=== PATIENT | male | born 1950 | race Caucasian/White ===

== ENCOUNTER → 2018-02-01 | Outpatient (CLI) | payer BC ==
[~2018-02-01] MED LIST: ALB6.7R INH; AMLO-96 PO; AMLO-99 PO; ASPI-1471 PO; ASPI-757 PO; ATOR40TA24 PO; BP MED PO; CEP500 PO; CYCL10TA29 PO; DOXY-179 PO; ENAL20TA99 PO; FLUT1DIS28 IH; HYDR-4309 PO; IBUP600T22 PO; IBUP800T37 PO; LISI20TA29 PO; LOR5/325 PO; MELO-150 PO; NITR0.4T3 SL; NO ROUTINE MEDS; OXYC-865 PO; POTA10CA40 PO; PRE20 PO; TRA50 PO
--- NOTE | 2018-02-01 14:27 | RADIOLOGY IMAGING REPORT ---
FACILITY: [facility] PATIENT NAME: Weston Green : 1950 MR: [id number] V: [id number] EXAM DATE: ORDERING PHYSICIAN: INDRA MENESES TECHNOLOGIST: Location: [facility] Patient: Weston Green : 1950 Visit/Account:[id number] Date of Sevice: 02/01/2018 Exam type: LUMBAR SPINE 2 OR 3 VIEW History: Low back pain, no known injury Comparison: None. Findings: There are five nonrib-bearing lumbar-type vertebral bodies present. There is no evidence of acute fr actures or subluxations within the lumbar spine. Small anterior osteophytes are seen throughout the lumbar spine. There is suggestion of mild disc space narrowing L1-2 and T12-L1 and L5-S1. Mild vasc ular calcination occasions are present in the abdominal aorta. IMPRESSION: 1. Mild spondylotic changes lumbar spine as described. If patient's symptoms persist MR is recommen ded Report Dictated By: Hanh Lechuga MD at 02/01/2018 2:21 PM Report E-Signed By: Hanh Lechuga MD at 02/01/2018 2:24 PM WSN:[email or web address]
== END ==
LOC: RAD 11:05
PROVIDERS: ATTEND Family Medicine
DX: M47.896 Other spondylosis, lumbar region (principal)
CPT/HCPCS: 72100

== ENCOUNTER 2018-02-28 11:27 | Outpatient (RCR) | payer BC ==
[2018-02-28 12:05] LABS: PLATELET COUNT, AUTOMATED 204 K/uL (150-450)
[2018-03-02] MEDS ORDERED: IOPAMIDOL 76% 100 ML INFUS BTL 100 ML ONE (08:00)
[2018-03-02] MEDS ORDERED: NS 0.9% 150 ML BAG 150 ML ONE (08:00)
[2018-03-02] MEDS ORDERED: IOPAMIDOL 76% 150 ML INFUS BTL 0 ML ONE (08:00)
--- NOTE | 2018-03-02 09:16 | RADIOLOGY IMAGING REPORT ---
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 Report Dictated By: Turner Ponce MD at 03/02/2018 9:33 AM Report E-Signed By: Turner Ponce MD at 03/02/2018 9:34 AM ORIGINAL REPORT EXAMINATION: CT Abdomen W/O Contrast CT Abdomen W/ Contrast CT Pelvis W/O Contrast CT Pelvis W/ Contrast 03/02/2018 8:00 AM HISTORY: Hematuria TECHNIQUE: CT Urogram Protocol:. A non-intravenous contrast enhanced spiral scan was obtained of the kidneys, ureters and bladder. Ad ditional enhanced CT urographic images were acquired. Contrast: 100 mL of IV Isovue 370. One of the following dose optimization techniques was utilized in the performance of this exam: Autom ated exposure control; adjustment of the mA and/or kV according to the patient's size; or use of an i terative reconstruction technique. Specific details can be referenced in the facility's radiology C T exam operational policy. COMPARISON STUDIES: 05/07/2009. FINDINGS: Right kidney and ureter: Numerous tiny hypoenhancing foci presumptively are cysts. No complicated cy st or solid cortical mass. 3 to 4 mm stone anteriorly in the mid to lower aspect. No urothelial mas s. Ureter is not dilated. Left kidney and ureter: Nonobstructive intrarenal stones measuring up to 4 mm. Multiple small cortic al cysts. No complicated cyst or solid mass. No urothelial mass. Ureter is not dilated. Bladder: 3 mm calcification along the right posterior bladder at or just above the UVJ within the oumou dder lumen. Liver / biliary: negative Pancreas: negative Spleen: negative Adrenal glands: negative Retroperitoneum: negative Pelvic structures: Prostate is borderline prominent, 4.5 x 4.5 cm. Bowel / peritoneum / mesenteries: No acute finding. Diverticulosis of the sigmoid. Vessels: Atherosclerosis includes coronary disease. Musculoskeletal / Body wall: Old lateral left ninth and 10th rib fractures. Degenerative changes in the spine. Small bone islands. Lymph node assessment: negative Lower chest: Basilar scarring or fibrosis greater on the right than the left. Emphysematous lucencie s. IMPRESSION: 1. Bilateral nephrolithiasis. 3 mm stone is either at the right UVJ or passed into the bladder, per haps within the bladder given the lack of ureteral dilatation above it. 2. Benign-appearing renal cortical cysts. Report Dictated By: Turner Ponce MD at 03/02/2018 8:57 AM Report E-Signed By: Turner Ponce MD at 03/02/2018 9:12 AM WSN:[email or web address]
== END 2018-03-02 18:00 | disposition home or self-care (01) ==
LOC: CT 11:27
PROVIDERS: ATTEND Urology
DX: N20.0 Calculus of kidney (principal); N28.1 Cyst of kidney, acquired; R31.0 Gross hematuria; M54.5 Low back pain
CPT/HCPCS: 36415; 74178; 81001; 82248; 85025; 87088; Q9967; 82040; 82247; 82310; 82374; 82435; 82565; 82947; 84075; 84132; 84155; 84295; 84450; 84460; 84520

== ENCOUNTER 2018-06-05 14:31 | Emergency (ER) | payer BC ==
--- NOTE | 2018-06-05 14:51 | ER Report ---
History and Physical Time Seen By MD: 14:46 Hx. of Stated Complaint: VOMITTING FOR 6 DAYS. NOTHING TO EAT FOR 4 DAYS HPI/ROS CHIEF COMPLAINT: Nausea and vomiting HISTORY OF PRESENT ILLNESS: This is a 67-year-old male who presents to the emergency department for nausea and vomiting. Patient states that over the last 6 days he's had no acute onset of nausea and vomiting, unable to keep anything down not able to eat over the last 4 days. Patient states he is scheduled to have left hip replacement in about 5 weeks. Patient states he is being very careful with his medications avoiding medications such as NSAIDs to prevent a delay in the surgery. Patient states his primary care provider gave him some tramadol for the hip pain. Patient states he is also very opposed to narcotic pain medications. Patient denies fevers, chest pain, shortness of breath. He is agreeable to a small dose of morphine and the emergency department for his left hip pain. REVIEW OF SYSTEMS: Respiratory: No cough, no dyspnea. Cardiovascular: No chest pain, no palpitations. Gastrointestinal: As above. Musculoskeletal: As above. Allergies: Coded Allergies: No Known Drug Allergies (Verified , 09/01/17) Home Meds Active Scripts Ondansetron (ZOFRAN ODT) 4 Mg Tab.rapdis, 4 MG PO Q6H Y for NAUSEA/VOMITING, # 20 TAB.L[place] 0 Refills Prov:CHRISTY TOBIAS [facility]- 06/05/18 Hydrocodone Bit/Acetaminophen (HYDROCODON-ACETAMINOPHEN 5-325) 1 Each Tablet, 1 EACH PO Q4-6H Y for PAIN, #8 TAB 0 Refills Take 1/2 a tab every 6 hours as needed for pain. Prov:CHRISTY [facility]BIAS [facility]- 06/05/18 Reported Medications Atorvastatin Calcium (LIPITOR) 40 Mg Tablet, 1 TAB PO QHS, TAB 06/12/17 Aspirin (ASPIR 81) 81 Mg Tablet.dr, 81 MG PO QDAY, TAB 06/12/17 Amlodipine Besylate (AMLODIPINE BESYLATE) 10 Mg Tablet, 1 TAB PO QDAY, TAB 06/12/17 Enalapril Maleate (ENALAPRIL MALEATE) 20 Mg Tablet, 20 MG PO QDAY 04/17/17 Discontinued Reported Medications Nitroglycerin (NITROGLYCERIN) 0.4 Mg Tab.subl, 0.4 MG SL Q5MIN Y for PAIN 06/12/17 Albuterol Sulfate (PROVENTIL HFA) 6.7 Gm Inh, 2 PUFF INH Q6H, INH 06/12/17 Past Medical/Surgical History The patient has a past medical surgical history of arthritis, hypertension, heart attack, COPD, chronic stomachache, celiac disease, lumbar back pain, back pain. Reviewed Nurses Notes: Yes Hx Smoking: Yes (1/2 PPD) Smoking Status: Current: Every Day Smoker Constitutional Vital Sign - Last 24 Hours 06/05/18 14:38 Temp 98.1 Pulse 78 Resp 16 B/P (MAP) 134/101 Pulse Ox 94 O2 Delivery Room Air Physical Exam General Appearance: The patient is alert, has no immediate need for airway protection and no current signs of toxicity, cachectic appearing. Eyes: Pupils equal and round no injection. Respiratory: Chest is non tender, lungs are clear to auscultation. Cardiac: regular rate and rhythm, no murmurs, clicks or rubs. Gastrointestinal: Abdomen is soft mild discomfort to the epigastrium with palpation. No masses, bowel sounds normal. Musculoskeletal: Neck: Neck is supple and non tender. Extremities have full range of motion and are non tender. Skin: No rashes or lesions. DIFFERENTIAL DIAGNOSIS: After history and physical exam differential diagnosis was considered for nausea and vomiting including but not limited to gastroenteritis, gastritis, appendicitis, and medication side effect. Medical Decision Making Data Points Result Diagram: 06/05/18 1449 06/05/18 1449 Laboratory Hematology Test 06/05/18 14:49 06/05/18 16:26 Red Blood Count 4.21 M/uL (4.00-5.60) Mean Corpuscular Volume 101.4 fL (80.0-96.0) Mean Corpuscular Hemoglobin 36.0 pg (26.0-33.0) Mean Corpuscular Hemoglobin Concent 35.5 g/dL (32.0-36.0) Red Cell Distribution Width 13.2 % (11.5-14.5) Mean Platelet Volume 7.2 fL (7.2-11.1) Neutrophils (%) (Auto) 78.9 % (39.4-72.5) Lymphocytes (%) (Auto) 11.9 % (17.6-49.6) Monocytes (%) (Auto) 7.7 % (4.1-12.4) Eosinophils (%) (Auto) 0.1 % (0.4-6.7) Basophils (%) (Auto) 1.4 % (0.3-1.4) Nucleated RBC Relative Count (auto) 0.0 /100WBC Neutrophils # (Auto) 7.6 K/uL (2.0-7.4) Lymphocytes # (Auto) 1.1 K/uL (1.3-3.6) Monocytes # (Auto) 0.7 K/uL (0.3-1.0) Eosinophils # (Auto) 0.0 K/uL (0.0-0.5) Basophils # (Auto) 0.1 K/uL (0.0-0.1) Nucleated RBC Absolute Count (auto) 0.00 K/uL Peripheral Blood Smear No Y/N Sodium Level 140 mmol/L (137-145) Potassium Level 4.0 mmol/L (3.5-5.0) Chloride Level 105 mmol/L (98-107) Carbon Dioxide Level 20 mmol/L (22-30) Blood Urea Nitrogen 25 mg/dl (9-21) Creatinine 1.30 mg/dl (0.66-1.25) Glomerular Filtration Rate Calc 54.9 Random Glucose 96 mg/dl (75-110) Calcium Level 9.0 mg/dl (8.4-10.2) Total Bilirubin 0.8 mg/dl (0.2-1.3) Aspartate Amino Transf (AST/SGOT) 23 U/L (0-35) Alanine Aminotransferase (ALT/SGPT) 15 U/L (0-56) Alkaline Phosphatase 64 U/L (0-126) Total Protein 6.4 g/dl (6.3-8.2) Albumin 4.0 g/dl (3.5-5.0) Amylase Level 65 U/L (0-110) Urine Color Yellow Urine Clarity Clear Urine pH 5.0 pH (4.8-9.5) Urine Specific [place] 1.023 Urine Protein 30 mg/dL (NEGATIVE) Urine Glucose (UA) Negative mg/dL (NEGATIVE) Urine Ketones 80 mg/dL (NEGATIVE) Urine Blood Negative (NEGATIVE) Urine Nitrite Negative (NEGATIVE) Urine Bilirubin Negative (NEGATIVE) Urine Urobilinogen 2.0 mg/dL (0.2-1.9) Urine Leukocyte Esterase Negative (NEGATIVE) Urine RBC 1 /HPF (0-2/HPF) Urine WBC 1 /HPF (0-5/HPF) Urine Squamous Epithelial Cells None /LPF (</=FEW) Urine Bacteria Negative /HPF (NONE-FEW) Urine Mucus Few /HPF (NONE-FEW) Chemistry Test 06/05/18 14:49 06/05/18 16:26 White Blood Count 9.6 k/uL (4.5-11.0) Red Blood Count 4.21 M/uL (4.00-5.60) Hemoglobin 15.1 g/dL (14.0-18.0) Hematocrit 42.7 % (42.0-52.0) Mean Corpuscular Volume 101.4 fL (80.0-96.0) Mean Corpuscular Hemoglobin 36.0 pg (26.0-33.0) Mean Corpuscular Hemoglobin Concent 35.5 g/dL (32.0-36.0) Red Cell Distribution Width 13.2 % (11.5-14.5) Platelet Count 234 K/uL (150-450) Mean Platelet Volume 7.2 fL (7.2-11.1) Neutrophils (%) (Auto) 78.9 % (39.4-72.5) Lymphocytes (%) (Auto) 11.9 % (17.6-49.6) Monocytes (%) (Auto) 7.7 % (4.1-12.4) Eosinophils (%) (Auto) 0.1 % (0.4-6.7) Basophils (%) (Auto) 1.4 % (0.3-1.4) Nucleated RBC Relative Count (auto) 0.0 /100WBC Neutrophils # (Auto) 7.6 K/uL (2.0-7.4) Lymphocytes # (Auto) 1.1 K/uL (1.3-3.6) Monocytes # (Auto) 0.7 K/uL (0.3-1.0) Eosinophils # (Auto) 0.0 K/uL (0.0-0.5) Basophils # (Auto) 0.1 K/uL (0.0-0.1) Nucleated RBC Absolute Count (auto) 0.00 K/uL Peripheral Blood Smear No Y/N Glomerular Filtration Rate Calc 54.9 Calcium Level 9.0 mg/dl (8.4-10.2) Total Bilirubin 0.8 mg/dl (0.2-1.3) Aspartate Amino Transf (AST/SGOT) 23 U/L (0-35) Alanine Aminotransferase (ALT/SGPT) 15 U/L (0-56) Alkaline Phosphatase 64 U/L (0-126) Total Protein 6.4 g/dl (6.3-8.2) Albumin 4.0 g/dl (3.5-5.0) Amylase Level 65 U/L (0-110) Urine Color Yellow Urine Clarity Clear Urine pH 5.0 pH (4.8-9.5) Urine Specific [place] 1.023 Urine Protein 30 mg/dL (NEGATIVE) Urine Glucose (UA) Negative mg/dL (NEGATIVE) Urine Ketones 80 mg/dL (NEGATIVE) Urine Blood Negative (NEGATIVE) Urine Nitrite Negative (NEGATIVE) Urine Bilirubin Negative (NEGATIVE) Urine Urobilinogen 2.0 mg/dL (0.2-1.9) Urine Leukocyte Esterase Negative (NEGATIVE) Urine RBC 1 /HPF (0-2/HPF) Urine WBC 1 /HPF (0-5/HPF) Urine Squamous Epithelial Cells None /LPF (</=FEW) Urine Bacteria Negative /HPF (NONE-FEW) Urine Mucus Few /HPF (NONE-FEW) Urinalysis Test 06/05/18 16:26 Urine Color Yellow Urine Clarity Clear Urine pH 5.0 pH (4.8-9.5) Urine Specific [place] 1.023 Urine Protein 30 mg/dL (NEGATIVE) Urine Glucose (UA) Negative mg/dL (NEGATIVE) Urine Ketones 80 mg/dL (NEGATIVE) Urine Blood Negative (NEGATIVE) Urine Nitrite Negative (NEGATIVE) Urine Bilirubin Negative (NEGATIVE) Urine Urobilinogen 2.0 mg/dL (0.2-1.9) Urine Leukocyte Esterase Negative (NEGATIVE) Urine RBC 1 /HPF (0-2/HPF) Urine WBC 1 /HPF (0-5/HPF) Urine Squamous Epithelial Cells None /LPF (</=FEW) Urine Bacteria Negative /HPF (NONE-FEW) Urine Mucus Few /HPF (NONE-FEW) ED Course/Re-evaluation Clinical Indication for ER IV: Hydration, IV Access ED Course The patient was admitted to room. A history and physical were obtained. Differential diagnoses were considered. IV was started. CBC, CMP and UA were obtained. MCV 101.4, MCH 36.0, I did compare these to the previous studies and this is within his normal limits. Chemistry showing BUN 25, creatinine 1.30 this is similar to previous studies. UA showing ketones and concentrated urine otherwise unremarkable. Patient was given a 1 L normal saline bolus. 4 mg IV Zofran, 4 mg IV morphine for his hip pain. Patient states he is feeling better however still having a little nausea, did repeat a 4 mg IV Zofran, he also received 20 mg IV and famotidine. Patient states he is feeling much better and would like to go home. I did send a prescription in for her Zofran and hydrocodone. I did tell the patient that he can go ahead and take the hydrocodone as needed for his discomfort till he follows up with his surgeon. The patient expressed understanding and is willing to do this as long as it doesn't delay his surgery. There were no other questions or concerns at this time and the patient was discharged home. Patient was feeling significantly better at the time of discharge. Decision to Disposition Date: Jun 05, 2018 Decision to Disposition Time: 16:42 Depart Departure Latest Vital Signs Vital Signs Date Time Temp Pulse Resp B/P (MAP) Pulse Ox O2 Delivery O2 Flow Rate FiO2 06/05/18 14:38 98.1 78 16 134/101 94 Room Air Impression: Primary Impression: Nausea & vomiting Additional Impression: Hip arthritis Condition: Improved Disposition: HOME OR SELF-CARE Referrals: INDRA MENESES MD (PCP) 2 Days New Scripts Ondansetron (ZOFRAN ODT) 4 Mg Tab.rapdis 4 MG PO Q6H Y for NAUSEA/VOMITING, #20 TAB.L[place]ON 0 Refills Prov: CHRISTY TOBIAS [facility]- 06/05/18 Hydrocodone Bit/Acetaminophen (HYDROCODON-ACETAMINOPHEN 5-325) 1 Each Tablet 1 EACH PO Q4-6H Y for PAIN, #8 TAB 0 Refills Take 1/2 a tab every 6 hours as needed for pain. Prov: CHRISTY [facility]BI[facility]- 06/05/18 Patient Instructions: Acute Nausea and Vomiting (ED), Clear Liquid Diet (ED), Narcotic Pain Management (ED) Additional Instructions: Try the Zofran for nausea and vomiting. Clear liquid diet for the next 12 hours then slowly progress into a regular diet. I did sent a prescription for hydrocodone to your pharmacy which you can use for severe pain until you have your surgery. Take Tylenol as needed if not using hydrocodone, do not take both together. Follow up with your primary care provider in 2-4 days if no improvement. Return to the ED for any other concerns or worsening symptoms. Problem Qualifiers Primary Impression: Nausea & vomiting Vomiting type: unspecified Vomiting Intractability: non-intractable Qualified Codes: R11.2 - Nausea with vomiting, unspecified CHRISTY TOBIAS MANAGER ACCESS- Jun 05, 2018 14:50
[2018-06-05] MEDS ORDERED: NS(*) 0.9% 1000 ML BAG 1,000 ML IV ONE (14:59)
[2018-06-05] MEDS ORDERED: ONDANSETRON 4 MG/2 ML VIAL IVP ONE ×2 (15:00→15:45)
[2018-06-05] MEDS ORDERED: MORPHINE 4 MG/ML SDV IVP ONE (15:00)
[2018-06-05 15:06] LABS: PLATELET COUNT, AUTOMATED 234 K/uL (150-450)
[2018-06-05] MEDS ORDERED: FAMOTIDINE(*) 20MG/50ML PREMIX 50 ML IVPB ONE (15:45)
[2018-06-05] MEDS ORDERED: ONDA4TAB PO (16:11)
[2018-06-05] MEDS ORDERED: HYDR-385 PO (16:11)
[2018-06-05 16:30] VITALS: BP 131/77
== END 2018-06-05 17:00 | disposition home or self-care (01) ==
LOC: ER 14:43
DX: R11.2 Nausea with vomiting, unspecified (principal); M16.12 Unilateral primary osteoarthritis, left hip; I10 Essential (primary) hypertension; I25.2 Old myocardial infarction; J44.9 Chronic obstructive pulmonary disease, unspecified; F17.210 Nicotine dependence, cigarettes, uncomplicated; Z79.82 Long term (current) use of aspirin; Z79.899 Other long term (current) drug therapy
CPT/HCPCS: 81001; 82150; 85025; 96374; 96375; 96376; 99284; J2270; J2405; J3490; J7030; 82040; 82247; 82310; 82374; 82435; 82565; 82947; 84075; 84132; 84155; 84295; 84450; 84460; 84520

== ENCOUNTER → 2018-08-29 | Outpatient (CLI) | payer MEDICARE, BC ==
[2018-07-12 11:49] VITALS: BMI 13.1
[~2018-08-29] MED LIST changes: +ACET500T68 PO; +AMLO-111 PO; +AMLO-113 PO; -AMLO-96 PO; -AMLO-99 PO; +HYDR-385 PO; -HYDR-4309 PO; +HYDR-653 PO; +HYDR-654 PO; +ONDA4TAB PO; +TRAM-420 PO; +TRAZ100T31 PO
--- NOTE | 2018-08-29 12:01 | RADIOLOGY IMAGING REPORT ---
FACILITY: [facility] [place] PATIENT NAME: Weston Green : 1950 MR: [id number] V: [id number] EXAM DATE: ORDERING PHYSICIAN: ANEUDY ALEX TECHNOLOGIST: Location: [facility] [place] Patient: Weston Green : 1950 Visit/Account:[id number] Date of Sevice: 08/29/2018 Exam type: VENOUS DOPP LOW LEFT EXTREMITY History: Left foot swelling total hip replacement 07/11/2018 Comparison: None. Findings: The left lower extremity veins were imaged including the left common femoral vein, greater saphenous vein superficial femoral vein, popliteal vein, posterior tibial vein, peroneal vein, and anterior tib ial veins revealing no evidence intraluminal thrombi. The veins were compressible and demonstrated a ugmentation. IMPRESSION: 1. No sonographic evidence of DVT involving the left lower extremity veins Report Dictated By: Hanh Lechuga MD at 08/29/2018 11:53 AM Report E-Signed By: Hanh Lechuga MD at 08/29/2018 11:56 AM WSN:[id number]
== END ==
LOC: US 01:23
PROVIDERS: ATTEND Orthopaedic Surgery
DX: M25.475 Effusion, left foot (principal)

== ENCOUNTER → 2018-09-07 | Outpatient (CLI) | payer BC ==
[2018-07-12 11:49] VITALS: BMI 13.1
--- NOTE | 2018-09-07 17:56 | RADIOLOGY IMAGING REPORT ---
FACILITY: [facility] [place] PATIENT NAME: Weston Green : 1950 MR: [id number] V: [id number] EXAM DATE: ORDERING PHYSICIAN: INDRA MENESES TECHNOLOGIST: Location: [facility] [place] Patient: Weston Green : 1950 Visit/Account:[id number] Date of Sevice: 09/07/2018 ARTERIAL SEGMENTAL PRESSURES EXAMINATION: Noninvasive vascular imaging of the right and left lower extremities. Technique: There has been calculation of the ankle-brachial indices using brachial artery systolic bl ood pressure and ankle systolic blood pressure. HISTORY: Left foot and lower leg swelling. Cold. COMPARISON: CT examination the abdomen and pelvis March 02, 2018 Findings: Right side: Right [place]: 1.10 Right TBI: 0.95 Grayscale imaging findings: Not included. Right thigh pressure: 129 mm Hg. Low thigh: 149 mmHg Calf pressure: 156 mm Hg Ankle pressure (PT): 127 mm Hg Ankle pressure (DP): 146 mm Hg. Pulse volume recordings. Mildly decreased amplitude at the right high thigh as compared to the contr alateral side. Looking at the CT with contrast, there is not appear to be any evidence of asymmetric pelvic inflow disease on the CT examination from March 02, 2018. There is augmentation from the high t high to the calf with maintenance of the amplitude from the low thigh to the ankle. Normal waveform morphology with a maintained dicrotic notch is noted. Normal waveform at the Toe. Left side: Left [place]: 1.16 Left TBI: 0.95 Grayscale imaging findings: No images obtained. Left thigh pressure: 147 mm Hg Low thigh pressure: 150 mmHg Left calf pressure: 160 mm Hg Left ankle pressure (PT): 143 mm Hg Left ankle pressure (DP): 154 mm Hg. Pulse volume recording: Normal waveform morphology at the high thigh. There is slight decreased ampl itude from the high thigh to the calf suggestive of some degree of underlying femoral-popliteal disea se. There is no significant pressure gradient to suggest that this is hemodynamically significant. There is augmentation from the low thigh to the ankle. Normal waveform morphology of the Toe. IMPRESSION: 1. On the right, [place] 1.10, normal at rest. Normal toe brachial index without noninvasive evidence o f hemodynamically significant peripheral artery disease. 2. On the left: 1.16, normal at rest. Normal toe brachial index. No evidence of significant underl keiko peripheral artery disease Report Dictated By: Inderjit Quiroga MD at 09/07/2018 5:44 PM Report E-Signed By: Inderjit Quiroga MD at 09/07/2018 5:53 PM WSN:[id number]
== END ==
LOC: US 00:51
PROVIDERS: ATTEND Family Medicine
DX: I73.9 Peripheral vascular disease, unspecified (principal)

== ENCOUNTER → 2019-04-17 | Outpatient (CLI) | payer BC ==
[2018-07-12 11:49] VITALS: BMI 13.1
[~2019-04-17] MED LIST changes: -AMLO-111 PO; -AMLO-113 PO; +AMLO-125 PO; +AMLO-127 PO
--- NOTE | 2019-04-17 15:45 | RADIOLOGY IMAGING REPORT ---
FACILITY: [facility] PATIENT NAME: Weston Green : 1950 MR: [id number] V: [id number] EXAM DATE: ORDERING PHYSICIAN: INDRA MENESES TECHNOLOGIST: Location: [facility] [place] Patient: Weston Green : 1950 Visit/Account:[id number] Date of Sevice: 04/17/2019 Study: Frontal and lateral views of the chest Indication: Shortness breath, cough, chest tightness Comparison study: June 12, 2017 Findings: PA and lateral views of the chest demonstrate no evidence of acute infiltrate. There is no evidence of pleural effusion. There is no evidence of pneumothorax. The mediastinal, cardiac, and diaphragmatic contours are unremarkable. The visualized bony structures are unremarkable. IMPRESSION: Unremarkable chest. Report Dictated By: Sen Chawla at 04/17/2019 3:39 PM Report E-Signed By: Sen Chawla at 04/17/2019 3:40 PM WSN:[email or web address]
== END ==
LOC: RAD 12:32
PROVIDERS: ATTEND Family Medicine
DX: R06.02 Shortness of breath (principal)
CPT/HCPCS: 71046

== ENCOUNTER 2019-05-22 15:35 | Emergency (ER) | payer BC ==
[2018-07-12 11:49] VITALS: Wt 39.7 kg
[~2019-05-22 15:35] MED LIST changes: -CELE-1 PO; -TRAM100T8 PO
[2019-05-22] MEDS ORDERED: NS(*) 0.9% 1000 ML BAG 1,000 ML IV ONE ×2 (15:45→19:05)
--- NOTE | 2019-05-22 15:45 | ER Report ---
History and Physical Time Seen By MD: 15:42 Hx. of Stated Complaint: FAMILY STATES N/V, R HIP PAIN AND REFUSAL TO EAT FOR SEVERAL WEEKS. C/O SOB. STATE RECENT HIP SURG. "HE HASN'T BEEN THE SAME SINCE THE OPERATION" (JUWAN VALENCIA DO) HPI/ROS CHIEF COMPLAINT: Nausea vomiting, chronic pain, failure to thrive HISTORY OF PRESENT ILLNESS: Patient is a 68-year-old male with a history of smoking here with complaints of worsening chronic pain in the setting of a recent hip surgery, decreased appetite, failure to thrive, weight loss. Patient does report a history of myocardial infarction, CVA. Patient was also reportedly hypoxic, short of breath per EMS report. Denies prior history of COPD, malignancy. Patient is cachectic appearing. REVIEW OF SYSTEMS: Constitutional: No fever, + chills. Eyes: No discharge. ENT: No sore throat. Cardiovascular: No chest pain, no palpitations. Respiratory: No cough, + shortness of breath. Gastrointestinal: + abdominal pain, no vomiting. + Nausea and decreased appetite Genitourinary: No hematuria. Musculoskeletal: + Hip and back pain. Skin: No rashes. Neurological: No headache. (JUWAN VALENCIA DO) Allergies: Coded Allergies: No Known Drug Allergies (Verified , 09/01/17) Home Meds Active Scripts Aspirin (ASPIRIN) 325 Mg Tablet, 325 MG PO QDAY, #30 TAB Prov:MAIA LONGORIA Mini CRYSTAL REPORT DEVELOPER 07/13/18 Reported Medications Tramadol Hcl (TRAMADOL HCL) 100 Mg Tab.er.24h, 100 MG PO QDAY, TAB 05/22/19 Celecoxib (CELEBREX) 200 Mg Capsule, 200 MG PO QDAY, CAPSULE 05/22/19 Hydrocodone Bit/Acetaminophen (NORCO 7.5-325 TABLET) 1 Each Tablet, 1 EACH PO Q4H PRN for PAIN, #30 07/13/18 Trazodone Hcl (TRAZODONE HCL) 100 Mg Tablet, 100 MG PO QHS, TAB 07/04/18 Hx Smoking: Yes (11/01 PPD) Smoking Status: Current: Every Day Smoker Hx Alcohol Use: Yes (JUWAN VALENCIA DO) Constitutional Vital Sign - Last 24 Hours 7/23/19 7/23/19 7/23/19 7/23/19 15:35 15:36 15:40 15:41 Pulse ??? Resp 20 B/P (MAP) 90/78 (82) 84/67 (73) 90/72 O2 Delivery Room Air 05/22/19 05/22/19 05/22/19 05/22/19 15:45 15:49 15:49 15:50 Temp 97.0 Pulse 96 Resp 18 B/P (MAP) 109/98 (102) 109/90 (96) 80/62 (68) Pulse Ox 96 O2 Delivery Oxy Mask O2 Flow Rate 3.0 3 05/22/19 05/22/19 05/22/19 05/22/19 15:55 16:00 16:05 16:10 Pulse 85 Resp 22 B/P (MAP) 92/62 (72) 86/63 (71) 89/56 (67) 84/64 (71) Pulse Ox 99 05/22/19 05/22/19 05/22/19 05/22/19 16:15 16:20 16:25 16:30 B/P (MAP) 87/58 (68) 95/66 (76) 81/68 (72) 128/70 (89) 05/22/19 05/22/19 05/22/19 05/22/19 16:35 16:40 16:45 16:50 Pulse 86 Resp 15 B/P (MAP) 92/45 (61) 105/72 (83) 101/67 (78) 101/63 (76) Pulse Ox 89 05/22/19 05/22/19 05/22/19 05/22/19 16:55 17:00 17:05 17:10 Pulse ??? Resp 33 B/P (MAP) ???/??? (1665) 96/83 (87) 116/72 (87) Pulse Ox 100 05/22/19 05/22/19/05/22/19 17:15 17:20 17:25 17:30 Pulse 75 72 Resp 19 31 B/P (MAP) 107/61 (76) 101/69 (80) 95/67 (76) 102/62 (75) Pulse Ox 100 100 05/22/19//05/22/19 17:35 17:40 17:45 17:50 B/P (MAP) 103/68 (80) 103/62 (76) 113/60 (77) 100/61 (74) 05/22/19 05/22/19 05/22/19 05/22/19 17:55 18:00 18:05 18:10 Pulse 73 Resp 18 B/P (MAP) 95/74 (81) 108/72 (84) 110/72 (85) 107/69 (82) Pulse Ox 100 05/22/19 05/22/19 05/22/19 05/22/19 18:15 18:20 18:25 18:30 Resp 25 B/P (MAP) 113/79 (90) 113/71 (85) 113/58 (76) 84/67 (73) Pulse Ox 100 05/22/19 05/22/19 05/22/19 05/22/19 18:35 18:40 18:45 18:50 Pulse 79 Resp 18 B/P (MAP) 123/87 (99) 120/81 (94) 108/76 (87) 114/84 (94) Pulse Ox 99 05/22/19 05/22/19 05/22/19 05/22/19 18:55 19:00 19:05 19:20 Resp 12 B/P (MAP) 104/71 (82) 116/67 (83) 96/67 (77) 121/58 (79) Pulse Ox 86 05/22/19 05/22/19 05/22/19 19:40 19:50 20:00 Pulse 92 Resp 25 B/P (MAP) 97/63 (74) 88/47 (61) Pulse Ox 100 Intake and Output 05/22/19 05/22/19 05/23/19 15:03 23:03 07:03 Intake Total 1910 ml Output Total 10 ml Balance 1900 ml (DARRYL BENZ MD) Physical Exam General Appearance: Difficulty breathing, uncomfortable appearing Eyes: Pupils equal and round no pallor or injection. ENT, Mouth: Mucous membranes are moist. Respiratory: Diminished breath sounds bilaterally, no rhonchi Cardiovascular: Regular rate and rhythm. Gastrointestinal: Diffuse abdominal tenderness, no rebound or guarding Neurological: Somnolent, answering questions intermittently Skin: Warm and dry, no rashes. Musculoskeletal: Neck is supple non tender. Extremities are nontender, nonswollen and have full range of motion. DIFFERENTIAL DIAGNOSIS: After history and physical exam differential diagnosis was considered for shortness of breath including but not limited to pulmonary infectious process, COPD, asthma, pulmonary embolus and congestive heart failure, malignancy, failure to thrive, dehydration, electrolyte abnormality (JUWAN VALENCIA DO) Medical Decision Making Data Points Result Diagram: 05/22/19 1545 05/22/19 1545 Laboratory Hematology Test 05/22/19 15:45 White Blood Count 14.5 k/uL (4.5-11.0) H Red Blood Count 3.63 M/uL (4.00-5.60) L Hemoglobin 12.8 g/dL (14.0-18.0) L Hematocrit 37.5 % (42.0-52.0) L Mean Corpuscular Volume 103.1 fL (80.0-96.0) H Mean Corpuscular Hemoglobin 35.3 pg (26.0-33.0) H Mean Corpuscular Hemoglobin Concent 34.2 g/dL (32.0-36.0) Red Cell Distribution Width 12.7 % (11.5-14.5) Platelet Count 320 K/uL (150-450) Mean Platelet Volume 7.5 fL (7.2-11.1) Neutrophils (%) (Auto) 78.0 % (39.4-72.5) H Lymphocytes (%) (Auto) 12.2 % (17.6-49.6) L Monocytes (%) (Auto) 6.2 % (4.1-12.4) Eosinophils (%) (Auto) 2.6 % (0.4-6.7) Basophils (%) (Auto) 1.0 % (0.3-1.4) Nucleated RBC Relative Count (auto) 0.0 /100WBC Neutrophils # (Auto) 11.3 K/uL (2.0-7.4) H Lymphocytes # (Auto) 1.8 K/uL (1.3-3.6) Monocytes # (Auto) 0.9 K/uL (0.3-1.0) Eosinophils # (Auto) 0.4 K/uL (0.0-0.5) Basophils # (Auto) 0.1 K/uL (0.0-0.1) Nucleated RBC Absolute Count (auto) 0.00 K/uL Chemistry Test 05/22/19 15:45 Sodium Level 138 mmol/L (137-145) Potassium Level 6.0 mmol/L (3.5-5.0) Chloride Level 107 mmol/L (98-107) Carbon Dioxide Level 13 mmol/L (22-30) Blood Urea Nitrogen 80 mg/dl (9-21) Creatinine 5.40 mg/dl (0.66-1.25) Glomerular Filtration Rate Calc 10.6 Random Glucose 100 mg/dl (75-110) Lactate 1.8 mmol/L (0.7-2.1) Calcium Level 9.8 mg/dl (8.4-10.2) Total Bilirubin 0.9 mg/dl (0.2-1.3) Aspartate Amino Transf (AST/SGOT) 115 U/L (0-35) Alanine Aminotransferase (ALT/SGPT) 51 U/L (0-56) Alkaline Phosphatase 91 U/L (0-126) Total Creatine Kinase 2181 U/L (55-170) Troponin I 0.112 ng/ml Total Protein 7.3 g/dl (6.3-8.2) Albumin 4.2 g/dl (3.5-5.0) Lipase 98 U/L (23-300) Coagulation Test 05/22/19 15:45 Prothrombin Time 13.4 seconds (12.0-14.4) Prothromb Time International Ratio 1.02 Activated Partial Thromboplast Time 31 seconds (23-35) Urinalysis Test 05/22/19 16:22 Urine Color Yellow Urine Clarity Clear Urine pH 5.0 pH (4.8-9.5) Urine Specific [place] 1.023 Urine Protein 30 mg/dL (NEGATIVE) Urine Glucose (UA) Negative mg/dL (NEGATIVE) Urine Ketones 20 mg/dL (NEGATIVE) Urine Blood Large (NEGATIVE) Urine Nitrite Negative (NEGATIVE) Urine Bilirubin Negative (NEGATIVE) Urine Urobilinogen 2.0 mg/dL (0.2-1.9) Urine Leukocyte Esterase Negative (NEGATIVE) Urine RBC <1 /HPF (0-2/HPF) Urine WBC 3 /HPF (0-5/HPF) Urine Squamous Epithelial Cells None /LPF (</=FEW) Urine Transitional Epithelial Cells Few /LPF (NONE-FEW) Urine Bacteria Few /HPF (NONE-FEW) Urine Hyaline Casts Many /LPF (NONE-FEW) Urine Granular Casts Few /LPF (NONE) Urine Mucus None /HPF (NONE-FEW) ([facility] EKG/Imaging EKG Interpretation 12 lead EKG: Rhythm: normal sinus rhythm, rate 83 [place]: normal QRS: normal ST segments: No current signs of ischemia with normal ST segments and normal appearing T waves Imaging CT chest abdomen and pelvis without contrast INDICATION: Diffuse chest and abdomen pain. COMPARISON: CT and pelvis on 03/02/2018. Technique: Axial CT images are obtained through the chest abdomen and pelvis without administration of IV contrast. Reformatted coronal and sagittal images were reviewed. One of the following dose optimization techniques was utilized in the performance of this exam: Automated exposure control; adjustment of the mA and/or kV according to the patient's size; or use of an iterative reconstruction technique. Specific details can be referenced in the facility's radiology CT exam operational policy. FINDINGS: CT Chest: Heart is normal size without pericardial effusion. Coronary artery calcination indications. The aorta shows mild atherosclerotic calcific changes. The ascending aorta is upper limits normal for size at 3.9 cm without aneurysm. The remaining aorta shows no indication of aneurysm. The pulmonary arteries are grossly normal. There is no mediastinal hematoma and there is no pathologic mediastinal adenopathy seen. Lungs show no consolidation, pleural effusion or pneumothorax. Mild chronic peripheral interstitial changes. No nodules or focal interstitial opacity. Airways are clear. Bony structures show no acute fractures or aggressive bony lesions. Degenerative change seen spine. Chest wall shows no enlarged axillary lymph nodes or masses. CT Abdomen and Pelvis: Evaluation of the solid organs of the abdomen is limited without IV contrast. The spleen, gallbladder, biliary system, pancreas, spleen and adrenal glands within normal limits. Both kidneys show calcifications within the collecting system without hydronephrosis. The largest calcification on the right side measures 4.5 mm and the largest on the left side measures 3 mm. No discrete renal lesions. The ureters are unremarkable. Diverticula seen along the sigmoid colon without pericolonic inflammation. The colon shows no other focal abnormality. The appendix is not definitely visualized. The small bowel in the left abdomen does show small short segment of intussusception without indication of obstruction. No discrete lesion is seen on this noncontrast exam. The small bowel shows no other focal abnormality or dilatation. The stomach is unremarkable. No free air, free fluid, fluid collections or areas of inflammation. The visualized pelvic structures within normal limits. Bony structures show no acute fractures or aggressive bony lesions. Degenerative change seen spine. Left hip arthroplasty changes without sequelae. There is mild subchondral bony linear sclerosis to the right femoral head. This is unchanged. This may represent chronic avascular necrosis. IMPRESSION: 1. No indication of acute abnormality to the chest, abdomen or pelvis. However, the left mid abdomen there is a small segment of small bowel intussusception without focal abnormality or discrete indication of obstruction at this time. This could be transient but not specific. If symptoms persist a follow-up exam can reevaluate the bowel gas pattern. 2. Bilateral nonobstructing renal calculi. 3. Diverticulosis without radiographic indication diverticulitis. 4. Other chronic stable findings as above. Report Dictated By: Daniel Herron at 05/22/2019 5:55 PM ([facility]) ED Course/Re-evaluation ED Course Patient is a 68-year-old male here with complaints of failure to thrive, shortness breath, abdominal pain, chronic pain, cachectic appearing. Patient was initially found to be hypoxic by EMS on his baseline oxygen. Patient was reportedly started on oxygen on Tuesday. Patient was found be in renal failure, severe dehydration, CT imaging pending at time of sign out. (JUWAN VALENCIA DO) Clinical Indication for ER IV: Hydration, IV Access ED Course I assumed care of this patient from Dr. Valencia at shift change. Patient is a 68 year old male. Diffuse abdominal pain for several days, and worsening shortness of breath. Found to be hypotensive on initial vital signs and given a liter of normal saline with improved pressures. Hypoxia initially was 82% on a 15 liter non-rebreather on arrival by EMS. Titrated down to 3 liters by oxy-mask and saturations then at 96%, but still feeling short of breath. Labs obtained, found to have leukocytosis with shift, mild anemia, hyperkalemia with potassium of 6.0 and acute kidney failure with BUN of 80 and Cr of 5.40. Baseline Cr runs 1.4 to 1.7 in the past. Troponin elevated at 0.112 and CPK was 2181. Liver function shows AST elevated at 115 and the rest of LFTs normal. Lipase normal. Lactate 1.8. Calcium IV bolus given for the hyperkalemia. On transfer of care to pa, awaiting results of non-contrast CT scan of chest/abdomen/pelvis. Patient has received low dose Ketamine for pain, sub-sedative dose. CT scan results show normal lung guerrero without acute cause of his shortness of breath. Abdomen shows short segment of intussiception, without inflammatory changes. I reviewed the case with our hospitalist, Dr. Rosenberg, and with our general surgeon, Dr. Polanco. They both felt that he may need dialysis and transfer to other facility would be the best option. Discussed with the patient and his and daughter. Initially resistant to transfer, but after explaining the different problems we were facing and potential interventions and outcomes, they agreed to transfer and would like everything done that would be needed. I called and spoke with Dr. Gonzales, hospitalist at [facility], who accepted the patient for transfer. We are giving a second liter of normal saline. Adding dextrose and insulin for the hyperkalemia as well. D10 with 20units of insulin added over the next hour. Decision to Disposition Date: May 22, 2019 Decision to Disposition Time: 18:59 Transfer Facility Patient was transferred to [facility] ([place], [place]) via ambulance. The transfer was non-emergent, and was required because the capabilities of the receiving hospital. Consent for transfer was obtained from the patient and family. See EMTALA for transfer orders. (DARRYL BENZ MD) Depart Departure Latest Vital Signs Vital Signs Date Time Temp Pulse Resp B/P (MAP) Pulse Ox O2 Delivery O2 Flow Rate FiO2 05/22/19 20:00 88/47 (61) 05/22/19 19:50 92 25 100 05/22/19 15:49 97.0 Oxy Mask 3 (DARRYL BENZ MD) Impression: Primary Impression: Acute renal failure Additional Impressions: Hyperkalemia Intussusception Failure to thrive in adult Condition: Condition Unchanged Disposition: XFER TO [facility]UTE [facility] Referrals: SOULEYMANE ROJAS DO (PCP) Problem Qualifiers Primary Impression: Acute renal failure Acute renal failure type: unspecified Qualified Codes: N17.9 - Acute kidney failure, unspecified JUWAN VALENCIA DO May 22, 2019 15:45 DARRYL BENZ MD May 22, 2019 19:31
[2019-05-22] MEDS ORDERED: TRAM100T8 PO (15:52)
[2019-05-22] MEDS ORDERED: CELE-1 PO (15:52)
[2019-05-22 16:07] LABS: PLATELET COUNT, AUTOMATED 320 K/uL (150-450)
[2019-05-22] MEDS ORDERED: IOPAMIDOL 76% 100 ML INFUS BTL 0 ML ONE (16:10)
[2019-05-22] MEDS ORDERED: KETAMINE HCL 500 MG/5 ML VIAL IVP ONE (16:15)
[2019-05-22 16:18] LABS: INR 1.02
[2019-05-22] MEDS ORDERED: CALCIUM CL 100 MG/1 ML SYR 1,000 MG in NS(*) 0.9% 100 ML BAG 100 ML IVPB ONE (16:50)
--- NOTE | 2019-05-22 18:16 | RADIOLOGY IMAGING REPORT ---
FACILITY: [facility] PATIENT NAME: Weston Green : 1950 MR: [id number] V: [id number] EXAM DATE: ORDERING PHYSICIAN: JUWAN BAILEY TECHNOLOGIST: Location: [facility] [place] Patient: Weston Green : 1950 Visit/Account:[id number] Date of Sevice: 05/22/2019 CT chest abdomen and pelvis without contrast INDICATION: Diffuse chest and abdomen pain. COMPARISON: CT and pelvis on 03/02/2018. Technique: Axial CT images are obtained through the chest abdomen and pelvis without administration o f IV contrast. Reformatted coronal and sagittal images were reviewed. One of the following dose optimization techniques was utilized in the performance of this exam: Autom ated exposure control; adjustment of the mA and/or kV according to the patient's size; or use of an i terative reconstruction technique. Specific details can be referenced in the facility's radiology C T exam operational policy. FINDINGS: CT Chest: Heart is normal size without pericardial effusion. Coronary artery calcination indications. The aorta shows mild atherosclerotic calcific changes. The ascending aorta is upper limits normal for size at 3.9 cm without aneurysm. The remaining aorta shows no indication of aneurysm. The pulmonary arteries are grossly normal. There is no mediastinal hematoma and there is no pathologic mediastinal adenopathy seen. Lungs show no consolidation, pleural effusion or pneumothorax. Mild chronic peripheral interstitial c hanges. No nodules or focal interstitial opacity. Airways are clear. Bony structures show no acute fractures or aggressive bony lesions. Degenerative change seen spine. C hest wall shows no enlarged axillary lymph nodes or masses. CT Abdomen and Pelvis: Evaluation of the solid organs of the abdomen is limited without IV contrast. The spleen, gallbladder, biliary system, pancreas, spleen and adrenal glands within normal limits. Both kidneys show calcifications within the collecting system without hydronephrosis. The largest hgulam cification on the right side measures 4.5 mm and the largest on the left side measures 3 mm. No discr ete renal lesions. The ureters are unremarkable. Diverticula seen along the sigmoid colon without pericolonic inflammation. The colon shows no other f ocal abnormality. The appendix is not definitely visualized. The small bowel in the left abdomen does show small short segment of intussusception without indication of obstruction. No discrete lesion is seen on this noncontrast exam. The small bowel shows no other focal abnormality or dilatation. The s tomach is unremarkable. No free air, free fluid, fluid collections or areas of inflammation. The visualized pelvic structures within normal limits. Bony structures show no acute fractures or aggressive bony lesions. Degenerati ve change seen spine. Left hip arthroplasty changes without sequelae. There is mild subchondral bony linear sclerosis to the right femoral head. This is unchanged. This may represent chronic avascular n ecrosis. IMPRESSION: 1. No indication of acute abnormality to the chest, abdomen or pelvis. However, the left mid abdomen there is a small segment of small bowel intussusception without focal abnormality or discrete indicat ion of obstruction at this time. This could be transient but not specific. If symptoms persist a foll ow-up exam can reevaluate the bowel gas pattern. 2. Bilateral nonobstructing renal calculi. 3. Diverticulosis without radiographic indication diverticulitis. 4. Other chronic stable findings as above. Report Dictated By: Daniel Herron at 05/22/2019 5:55 PM Report E-Signed By: Daniel Herron at 05/22/2019 6:09 PM WSN:[id number]
--- NOTE | 2019-05-22 19:02 | EKG ---
FACILITY: [facility] [place] PATIENT NAME: ZAID MURRAY : [id number] MR: [id number] V: [id number] EXAM DATE: ORDERING PHYSICIAN: DARRYL BENZ TECHNOLOGIST: LIDIA Turk Reason : REPEAT EKG Blood Pressure : / mmHG Vent. Rate : 083 BPM Atrial Rate : 083 BPM P-R Int : 132 ms QRS Dur : 072 ms QT Int : 342 ms P-R-T Axes : 089 073 080 degrees QTc Int : 401 ms Normal sinus rhythm Normal ECG When compared with ECG of 22-MAY-2019 15:31, Rate had decreased by 23 BPM Left anterior fascicular block is no longer present Confirmed by Derek Pandey ([id number]) on 05/22/2019 8:50:35 PM Referred By: Confirmed By:Derek Julio
[2019-05-22] MEDS ORDERED: INSULIN HUM REG IV ONE (19:10)
[2019-05-22] MEDS ORDERED: DEXTROSE 10% IV ONE (19:10)
[2019-05-22] MEDS ORDERED: KETAMINE HCL-NS 50 MG/5 ML SYR IVP ONE (19:45)
[2019-05-22] MEDS ORDERED: LIDOCAINE 2% 200MG/10ML UROJET TP ONE (19:50)
[2019-05-22 20:00] VITALS: BP 88/47
--- NOTE | 2019-05-23 10:14 | EKG ---
FACILITY: [facility] PATIENT NAME: ZAID MURRAY : [id number] MR: [id number] V: [id number] EXAM DATE: ORDERING PHYSICIAN: JUWAN BAILEY TECHNOLOGIST: Test Reason : Blood Pressure : / mmHG Vent. Rate : 106 BPM Atrial Rate : 106 BPM P-R Int : 124 ms QRS Dur : 066 ms QT Int : 326 ms P-R-T Axes : 089 -54 092 degrees QTc Int : 433 ms Sinus tachycardia Biatrial enlargement Abnormal ECG When compared with ECG of 12-JUN-2017 19:46, Nonspecific T wave abnormality no longer evident in Inferior leads Nonspecific T wave abnormality, improved in Lateral leads Confirmed by INDRA AQUINO ([id number]) on 05/24/2019 6:24:37 AM Referred By: Confirmed By:INDRA AQUINO
== END 2019-05-22 20:19 | disposition short-term general hospital (02) ==
LOC: ER 15:41
DX: N17.9 Acute kidney failure, unspecified (principal); R62.7 Adult failure to thrive; R09.02 Hypoxemia; E87.5 Hyperkalemia; K59.00 Constipation, unspecified; I25.2 Old myocardial infarction; Z86.73 Personal history of transient ischemic attack (TIA), and cerebral infarction without residual deficits; F17.200 Nicotine dependence, unspecified, uncomplicated; Z79.82 Long term (current) use of aspirin; Z79.899 Other long term (current) drug therapy; Z98.890 Other specified postprocedural states
CPT/HCPCS: 71250; 74176; 81001; 82550; 82803; 83605; 83690; 84484; 85025; 85610; 85730; 93005; 96365; 96375; 96376; 99284; B4164; J1815; J3490; J7030; J7050; 82040; 82247; 82310; 82374; 82435; 82565; 82947; 84075; 84132; 84155; 84295; 84450; 84460; 84520; Q9967

== ENCOUNTER → 2019-05-22 | Outpatient (CLI) | payer BC ==
[2018-07-12 11:49] VITALS: BMI 13.1
[~2019-05-22] MED LIST changes: +CELE-1 PO; +TRAM100T8 PO
== END ==
LOC: AMB 19:58
PROVIDERS: ATTEND Nurse Practitioner
DX: N17.9 Acute kidney failure, unspecified (principal)
CPT/HCPCS: A0425; A0426

== ENCOUNTER → 2019-05-22 | Outpatient (CLI) | payer BC ==
[2018-07-12 11:49] VITALS: BMI 13.1
== END ==
LOC: AMB 15:05
PROVIDERS: ATTEND Nurse Practitioner
DX: R53.1 Weakness (principal); R42 Dizziness and giddiness; E46 Unspecified protein-calorie malnutrition
CPT/HCPCS: A0425; A0427

== ENCOUNTER → 2019-06-07 | Outpatient (REF) | payer BC ==
[2018-07-12 11:49] VITALS: BMI 13.1
[~2019-06-07] MED LIST changes: +CELE-1 PO; +TRAM100T8 PO
== END ==
PROVIDERS: ATTEND Family Medicine
DX: R30.0 Dysuria (principal)
CPT/HCPCS: 81001

== ENCOUNTER → 2019-06-08 | Outpatient (CLI) | payer BC ==
[2018-07-12 11:49] VITALS: BMI 13.1
[2019-06-08 14:42] LABS: PLATELET COUNT, AUTOMATED 373 K/uL (150-450)
== END ==
LOC: LAB 14:23
PROVIDERS: ATTEND Family Medicine
DX: M62.82 Rhabdomyolysis (principal)
CPT/HCPCS: 36415; 82040; 82247; 82310; 82374; 82435; 82565; 82947; 84075; 84132; 84155; 84295; 84450; 84460; 84520; 85025